=== PATIENT | female | born 1995 | race Caucasian/White ===

== ENCOUNTER 2022-01-28 18:43 | Emergency (ER) | payer MEDICAID ==
[~2022-01-28] VITALS: Ht 175.3 cm; Wt 100.0 kg
[2022-01-28 19:00] VITALS: BP 117/75
[2022-01-28 19:30] VITALS: BP 112/80
[2022-01-28 19:32] LABS: HEMATOCRIT 42.7 % (37.0-47.0); HEMOGLOBIN 14.3 g/dl (12.0-16.0); IMMATURE GRANULOCYTES 0.2 % (0.0-5.0); MEAN CELL VOLUME 91.2 fL CALC (80.0-100.0); MEAN CORPUSCULAR HGB 30.6 pG CALC (26.0-32.0); MEAN CORPUSCULAR HGB CONC 33.5 g/dL CAL (32.0-36.0); NEUT# 5.93 thou/uL (2.00-7.15); RED BLOOD COUNT 4.68 mill/uL (4.20-5.60); RED CELL DISTRI WIDTH 11.6 % (11.5-15.5)
[2022-01-28 19:51] LABS: ALBUMIN 4.4 g/dL (3.2-5.0); ALKALINE PHOSPHATASE 92 u/l (38-126); ANION GAP 14 (6-22 (CALC)); BILIRUBIN, TOTAL 0.8 mg/dL (0.0-1.4); BUN 12 mg/dL (7-17); BUN/CREATININE RATIO 16 (12-20 (CALC)); CARBON DIOXIDE 23 mmol/l (22-30); CHLORIDE 107 mmol/l (95-108); CREATININE 0.8 mg/dL (0.5-1.0); ETHYL ALCOHOL 0 mg/dl (0-30); GFR FOR AFR.AMER. > 60 ML/MIN (>=60 (CALC)); GFR OTHER RACES > 60 ML/MIN (>=60 (CALC)); POTASSIUM 3.4 mmol/l (3.5-5.1); SGOT/AST 20 u/l (14-36); SODIUM 141 mmol/l (137-146); TOTAL PROTEIN 7.4 g/dL (6.3-8.2)
[2022-01-28 19:59] LABS: ACT PARTIAL THROMBO TIME 24.1 SECONDS (20.0-32.5); PROTHROMBIN TIME 10.4 SECONDS (9.0-12.5)
[2022-01-28 20:00] VITALS: BP 106/87
[2022-01-28 20:02] LABS: MYOGLOBIN 16 ng/mL (0 - 62)
[2022-01-28 20:08] LABS: D-DIMER 0.17 mg/L (0.19-0.60)
[2022-01-28 20:30] VITALS: BP 114/67
[2022-01-28 21:00] VITALS: BP 102/56
[2022-01-28 22:59] VITALS: BP 102/56
== END 2022-01-28 23:07 | disposition home or self-care (01) ==
LOC: ED 18:43
PROVIDERS: Family Medicine
DX: F12.129 Cannabis abuse with intoxication, unspecified (principal); Z20.822 Contact with and (suspected) exposure to COVID-19